=== PATIENT | male | born 1990 | race Caucasian/White ===

== ENCOUNTER → 2019-04-05 12:53 | Outpatient (CLI) | payer OTHER ==
--- NOTE | 2019-04-05 13:56 | NUR ---
TIME OUT PERFORMED @ 1345, PATIENT, , & PROCEDURE VERIFIED BY DR. BERGER & WILL OLIVEIRA RT (R)
== END | disposition home or self-care (01) ==
LOC: D.RAD 12:53
PROVIDERS: ATTEND Clinical Nurse Specialist Family Health
DX: M25.512 Pain in left shoulder (principal)